=== PATIENT | female | born 1990 | race Caucasian/White ===

== ENCOUNTER 2023-02-13 11:55 | Emergency (ER) | payer BC ==
[~2023-02-13] VITALS: Ht 165.1 cm; Wt 68.0 kg
--- NOTE | 2023-02-13 12:10 | NUR ---
PATIENT CAME WITH DIZINESS,NAUSEA AND FEELING FAINT.ALERT AND ORIENTED ,ON ROOM AIR,PLACED ON BED AND CONNECT TO MONITOR.
--- NOTE | 2023-02-13 13:06 | NUR ---
PATIENT IS NOT ABLE TO GIVE URINE.PROVISE BED HUDSON.STILL NOT.SHE DONT WANT TO GO WASH ROOM.ENCOURAGED HER TO GIVE URINE.
--- NOTE | 2023-02-13 13:18 | NUR ---
PATIENT NOT ABLE TO GIVE URINE NOW,DR VEE MADE AWARE.
--- NOTE | 2023-02-13 14:59 | NUR ---
URINE COLLECTED AND SEND TO LAB.
[2023-02-13] MEDS ORDERED: IV NS 0.9% 1,000 ML IV ONE (15:00)
[2023-02-13] MEDS ORDERED: ONDANSETRON HCL/PF - ER 4 MG/2 ML VIAL IV ONE (15:00)
[2023-02-13 15:02] LABS: BILIRUBIN,URINE NEGATIVE (NEGATIVE); COLOR,URINE YELLOW (YELLOW); LEUKOCYTE ESTERASE ,URINE NEGATIVE (NEGATIVE); NITRITE, URINE NEGATIVE (NEGATIVE); PH,URINE 5.5 (5.0-8.0); PROTEIN,URINE NEGATIVE (NEGATIVE); UGLUCOSE NEGATIVE (NEGATIVE); UROBILINOGEN,URINE 0.2 EU/dL (0.2)
[2023-02-13] MEDS ORDERED: ONDANSETRON HCL/PF 4 MG/2 ML VIAL ONE (15:07)
[2023-02-13 15:20] LABS: BACTERIA,URINE Many /HPF (None Seen); RBC,URINE 0-2 /HPF (0-2); SQUAMOUS EPITHELIAL CELL,UR Moderate /HPF (None Seen); WBC,URINE NONE SEEN /HPF (0-3)
[2023-02-13 15:55] LABS: BASOPHILS % (AUTO) 0.1 % (0.0-2.0); HEMATOCRIT 38 % (33-45); HEMOGLOBIN 12.5 g/dL (11.5-14.8); LYMPHOCYTES # (AUTO) 0.7 K/uL (0.8-4.8); LYMPHOCYTES % (AUTO) 5.5 % (20.0-44.0); MEAN CORPUSCULAR HGB CONC 33 g/dl (31.0-36.0); MEAN CORPUSCULAR VOLUME 82 fL (82-100); MONOCYTES # (AUTO) 0.3 K/uL (0.1-1.30); MONOCYTES % (AUTO) 2.4 % (2.0-12.0); NEUTROPHILS # (AUTO) 12.1 K/uL (1.8-8.9); PLATELET COUNT (AUTO) 232 K/uL (150-450); RED BLOOD CELL COUNT(AUTO) 4.61 MIL/uL (4.0-5.2); WHITE BLOOD COUNT (AUTO) 13.2 K/uL (4.3-11.0)
[2023-02-13 16:12] LABS: CALCIUM, SERUM 8.8 mg/dL (8.5-10.1); CREATININE 0.6 mg/dL (0.6-1.3); POTASSIUM 3.7 mmol/L (3.5-5.1)
[2023-02-13] MEDS ORDERED: ONDA4TAB5 PO (16:43)
--- NOTE | 2023-02-13 16:45 | NUR ---
DR VEE AT BED SIDE.EXPLAIN REPORTS AND DISCHARGE INSTRUCTIONS.
--- NOTE | 2023-02-13 16:58 | NUR ---
IV removed. Catheter intact and site benign. Pressure and 4x4 applied to site. No bleeding noted.
--- NOTE | 2023-02-13 16:59 | NUR ---
Patient discharged to home in stable condition. Written and verbal after care instructions given. Patient verbalizes understanding of instruction.
[2023-02-13 17:00] VITALS: BP 100/84; TEMP 98.6
== END 2023-02-13 17:00 | disposition home or self-care (01) ==
LOC: ER 12:00
DX: R42 Dizziness and giddiness (principal); R11.2 Nausea with vomiting, unspecified; Z79.899 Other long term (current) drug therapy
CPT/HCPCS: 99283; 96374; 96361; 85025; 80048; 87086; 84703; 81001; 36415; J2405; J7030